=== PATIENT | male | born 1945 | race Caucasian/White ===

== ENCOUNTER 2017-09-20 15:15 | Inpatient (IN) | payer MEDICARE ==
[2017-09-20] MEDS ORDERED: Ondansetron INJ* 2 MG/ML VIAL IV ONE (17:26)
[2017-09-20 17:48] LABS: ABS Basophils 0 10^3/ul (0-0.2); ABS Eosinophils 0.1 10^3/ul (0-0.6); ABS Lymphocytes 0.7 10^3/ul (1.0-4.8); ABS Monocytes 1.3 10^3/ul (0-0.8); ABS Neutrophils 10.7 10^3/ul (1.5-7.7); ABS Nucleated RBC 0 10^3/ul; Eosinophil % 0.4 % (0-6); Hematocrit 31 % (42-52); Hemoglobin 10.4 g/dl (14.0-18.0); Lymphocyte % 5.5 % (25-47); Mean Corpuscular HGB Conc 34 g/dl (31-36); Mean Corpuscular Hemoglobin 32 pg (27-31); Mean Corpuscular Volume 94 fL (80-94); Nucleated Red Blood Cells % 0; Platelet Count 187 10^3/ul (150-450); Red Blood Count 3.32 10^6/ul (4.0-5.4); Red Cell Distribution Width 13 % (10.5-15); White Blood Count 12.7 10^3/ul (3.5-10.8)
[2017-09-20 18:02] LABS: Urine Appearance Clear; Urine Blood 1+ (Negative); Urine Color Yellow; Urine Ketones Negative (Negative); Urine Protein Negative (Negative); Urine Specific Gravity 1.008 (1.010-1.030); Urine Urobilinogen Negative (Negative)
[2017-09-20 18:05] LABS: EGFR Non-African American 6.8 (>60)
[2017-09-20] MEDS ORDERED: NS 0.9% 1000 ML* 1,000 ML IV ONE (18:11)
[2017-09-20] MEDS ORDERED: Sodium Bicarbonate (ANTACID)* 650 MG TAB PO ONE (18:18)
[2017-09-20] MEDS ORDERED: Sodium Polystyrene ORAL.SOL* 15 GM/60 ML BTL PO ONE (18:18)
[2017-09-20] MEDS ORDERED: Enoxaparin(*) 40 MG/0.4 ML SYR SUBCUT SCH (19:00)
[2017-09-20] MEDS ORDERED: Al Hydrox/Mg Hydrox/Simet LIQ* 30 ML UDC PO PRN (19:00)
[2017-09-20] MEDS ORDERED: Acetaminophen TAB* 325 MG PO PRN (19:00)
[2017-09-20] MEDS ORDERED: Calcium Gluconate INJ* 1 GM in NS 0.9% 50 ML* 50 ML IVPB ONE (19:41)
[2017-09-20] MEDS ORDERED: Zosyn per Pharmacy* NOTE FOLLOW UP PRN (19:52)
[2017-09-20] MEDS ORDERED: Piperacillin/Tazobac ADVAN(*) 3.375 GM in NS 0.9% 50 ML* 50 ML IVPB ONE (20:00)
[2017-09-20] MEDS ORDERED: Piperacillin/Tazobac ADVAN(*) 3.375 GM in NS 0.9% 100 ML* 100 ML IVPB ONE (20:00)
[2017-09-20] MEDS ORDERED: Metoprolol Tartrate IV* 1 MG/ML 5 ML VIAL IV PRN ×2 (20:34→22:52)
[2017-09-20] MEDS ORDERED: Metoprolol Tartrate IV* 1 MG/ML 5 ML VIAL IV ONE (20:35)
[2017-09-20] MEDS ORDERED: Apixaban* 5 MG TAB PO SCH (21:00)
[2017-09-20] MEDS ORDERED: Diltiazem IV* 5 MG/ML 5 ML VIAL (for loading dose/IV Push) (25 MG) IV SLOW PU ONE (21:07)
[2017-09-20] MEDS ORDERED: Heparin DRIP 25,000 UNITS(*) 25,000 UNITS/500 ML BAG IV SCH (21:15)
--- NOTE | 2017-09-20 21:15 | PN ---
Progress Note - Progress Note Date of Service: 09/20/17 Note: Prior to arrival to ICU patient went into Afib with RVR, given Lopressor 5 mg IV with minimal effect. Patient states he goes in and out of Afib when he overexerts himself. He sees Dr. Brown. Denies CP or SOB. Dr. Brown infantry operations specialist - recommended amiodarone to attempt chemical conversion. Will hold Eliquis in setting of renal failure. If he remains in afib in the AM will start heparin drip. May be a candidate for cardioversion in AM. Will repeat labs now and check mag and trop
[2017-09-20] MEDS ORDERED: Amiodarone 150 MG IVPREMIX* 150 MG/100 ML BAG IV ONE (21:20)
[2017-09-20] MEDS ORDERED: Amiodarone 360 MG IVPREMIX* 360 MG/200 ML BAG IV ONE (21:30)
[2017-09-20 21:44] LABS: ABS Basophils 0 10^3/ul (0-0.2); ABS Eosinophils 0.1 10^3/ul (0-0.6); ABS Lymphocytes 0.7 10^3/ul (1.0-4.8); ABS Monocytes 1.4 10^3/ul (0-0.8); ABS Neutrophils 10.2 10^3/ul (1.5-7.7); ABS Nucleated RBC 0 10^3/ul; Eosinophil % 0.6 % (0-6); Hematocrit 34 % (42-52); Hemoglobin 11.3 g/dl (14.0-18.0); Lymphocyte % 5.9 % (25-47); Mean Corpuscular HGB Conc 34 g/dl (31-36); Mean Corpuscular Hemoglobin 32 pg (27-31); Mean Corpuscular Volume 94 fL (80-94); Mean Platelet Volume 9.3 um3 (7.4-10.4); Nucleated Red Blood Cells % 0; Platelet Count 208 10^3/ul (150-450); Red Blood Count 3.59 10^6/ul (4.0-5.4); Red Cell Distribution Width 13 % (10.5-15); White Blood Count 12.4 10^3/ul (3.5-10.8)
[2017-09-20] MEDS ORDERED: Diltiazem IV VIAL* 125 MG in NS 0.9% 100 ML* 100 ML IV SCH (22:00)
[2017-09-20] MEDS ORDERED: Heparin VIAL(*) 5000 UNITS/ML VIAL (FIVE THOUSAND) IV SCH (22:00)
[2017-09-20] MEDS ORDERED: Diltiazem DRIP* 100 MG/100 ML ADDV.BAG IVPB SCH (22:00)
[2017-09-20] MEDS: NS 0.9% 1000 ML* 1,000 ML IV SCH (22:08)
[2017-09-20] MEDS: Terazosin CAP* 5 MG PO SCH (22:42)
[2017-09-20] MEDS: Metoprolol Tartrate TAB* 25 MG PO SCH (22:42)
[2017-09-20] MEDS: Atorvastatin* 10 MG TAB PO SCH (22:43)
[2017-09-21] MEDS: ZOSYN 3.375 GM Q12H per EXTENDED INFUSION IVPB SCH ×4 (00:49→12:59)
[2017-09-21] MEDS ORDERED: Amiodarone 360 MG IVPREMIX* 360 MG/200 ML BAG IV SCH (03:30)
[2017-09-21 03:34] LABS: EGFR Non-African American 11.5 (>60)
--- NOTE | 2017-09-21 04:10 | HP ---
HISTORY AND PHYSICAL: DATE OF ADMISSION: 09/20/17 TIME OF ADMISSION: 7 p.m. CHIEF COMPLAINT: Urinary frequency and generalized malaise. HISTORY OF PRESENT ILLNESS: This is a 71-year-old man with history of BPH, who presents with 1 week of urinary frequency and pelvic pain. He has a long history of BPH and follows with the primary care physician at the [facility], but does not have a urologist. He reports first having symptoms of feeling ill 2 weeks ago when he thought he ate some bad food and had several days of watery diarrhea that had no blood and then 1 week ago, he developed urinary frequency and suprapubic discomfort. Six days ago, he called his primary care physician at the [facility], who prescribed Bactrim, but over the past 6 days, he has been taking the Bactrim without any relief and today, he continued to feel worse, so he came to the emergency department. His is here with him and reports loose stools as well associated with his urinary frequency and pelvic pain. He has also been very sleepy because he has been waking up to urinate every 30 minutes throughout the night and also complains of decreased appetite and nausea. PAST MEDICAL HISTORY: 1. Atrial fibrillation, on anticoagulation. 2. Coronary artery disease. 3. BPH. PCP: [facility] HOME MEDICATIONS: 1. Eliquis 5 mg b.i.d. 2. Metoprolol tartrate 25 mg b.i.d. 3. Aspirin 81 mg daily. 4. Atorvastatin 10 mg q.h.s. 5. CoQ10 30 mg q.h.s. 6. Levothyroxine 0.1 mg q.h.s. SOCIAL HISTORY: He is a former smoker and quit in 2000. 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 He lives at home with his , Shelli. Shelli's phone number is [phone]. REVIEW OF SYSTEMS: As per HPI. The remainder of 14-point review of systems is negative. PHYSICAL EXAMINATION GENERAL: Alert, well-appearing male, in no acute distress, though he does appear mildly uncomfortable. VITAL SIGNS: Temperature 97.7, heart rate 87, respiratory rate 17, pulse ox 97 % on room air, blood pressure 151/79. HEENT: Pupils 3 mm bilaterally and reactive to light. No nystagmus. Mucosa is moist. No pharyngeal exudates or erythema. NECK: No cervical lymphadenopathy. No cervical lymphadenopathy. LUNGS: Clear bilaterally. CHEST: Regular rate and rhythm. No murmurs. PMI is nondisplaced. ABDOMEN: Soft, nontender, nondistended. He has very mild tenderness to deep palpation in suprapubic area. A Suresh catheter is in place and draining light yellow urine. He has no CVA tenderness. EXTREMITIES: 2+ pitting lower extremity edema. No rashes or ulcers. LABORATORY DATA: Sodium 133, potassium 6.3, chloride 103, bicarb 18, BUN 85, creatinine 7.81. Urinalysis: 1+ blood, trace leuk esterase. ASSESSMENT AND PLAN: This is a 71-year-old man with history of benign prostatic hyperplasia, who presents with urinary frequency and suprapubic pain and is found to be in acute urinary retention with acute renal failure. 1. Acute renal failure. Based on his history, I suspect this is most likely a post-renal failure. I will check a renal ultrasound tomorrow morning if his renal function is not improving; however, I suspect it will continue to improve with the relief of the obstruction. He needs an EKG stat, this has not yet been done. He needs telemetry and an ICU admission for his hyperkalemia. 2. Hyperkalemia. Again, an EKG is pending. Kayexalate has been ordered in the ED; however, further management will depend on the findings of his EKG at this time. 3. Acute urinary retention, likely secondary to benign prostatic hyperplasia and possibly prostatitis. He does not appear to be on any benign prostatic hyperplasia medications, so I will start Flomax and finasteride and I will broaden his antibiotic to pip-tazo (completed 6 days of tmp/smx at home) and follow up urine cultures, though they may be negative in the setting of prostatitis. Will check frequent BMPs to monitor electrolytes in the setting of post-obstructive diuresis. 4. Anion gap metabolic acidosis. I suspect this is most likely secondary to uremia and should improve as his renal failure improves. 5. Atrial fibrillation. He is currently in normal sinus rhythm. Hold eliquis , continue metoprolol, and aspirin. 6. Coronary artery disease. Continue his home regimen of metoprolol, aspirin, and atorvastatin. 7. Hypothyroidism. Continue levothyroxine. 8. DVT prophylaxis contraindicated in the setting of therapeutic anticoagulation. [id number]/[facility] #: [id number] LISA
[2017-09-21 05:39] LABS: Hematocrit 32 % (42-52); Mean Corpuscular HGB Conc 35 g/dl (31-36); Mean Corpuscular Hemoglobin 32 pg (27-31); Mean Corpuscular Volume 93 fL (80-94); Mean Platelet Volume 9.3 um3 (7.4-10.4); Platelet Count 209 10^3/ul (150-450); Red Blood Count 3.42 10^6/ul (4.0-5.4); Red Cell Distribution Width 13 % (10.5-15)
[2017-09-21 05:41] LABS: ABS Basophils 0 10^3/ul (0-0.2); ABS Eosinophils 0.2 10^3/ul (0-0.6); ABS Monocytes 1.6 10^3/ul (0-0.8); ABS Neutrophils 7.2 10^3/ul (1.5-7.7); ABS Nucleated RBC 0 10^3/ul; Nucleated Red Blood Cells % 0
[2017-09-21 05:51] LABS: EGFR Non-African American 12.7 (>60)
[2017-09-21] MEDS: Levothyroxine TAB* 100 MCG TAB PO SCH (06:28)
--- NOTE | 2017-09-21 09:17 | RAD ---
Indication: Post obstructive renal failure. Real-time sonography of the kidneys was performed. The right kidney measures 12.0 x 5.9 x 6.0 cm. The left kidney measures 12.2 x 6.2 x 5.4 cm. Mild hydronephrosis is noted in both kidneys. Bilateral hydroureter is noted. IMPRESSION: Mild bilateral hydronephrosis and hydroureter.
[2017-09-21] MEDS: Multivitamins/Minerals TAB PO SCH (09:42)
[2017-09-21] MEDS: Aspirin EC Low Dose* 81 MG TAB.EC PO SCH (09:42)
[2017-09-21] MEDS: Metoprolol Tartrate TAB* 25 MG PO SCH ×2 (09:42→20:36)
[2017-09-21] MEDS: NS 0.9% 1000 ML* 1,000 ML IV SCH (10:02)
--- NOTE | 2017-09-21 11:00 | PN ---
Subjective Date of Service: 09/21/17 Interval History: went in to afib with rvr overnight, converted to NSR this morning around 7am and remains in normal sinus. he feels good this morning, appetite is improved, he has been afebrile, his only complaint is right testicular tenderness. Objective Active Medications: Acetaminophen (Tylenol Tab*) 650 mg PO Q4H PRN PRN Reason: FEVER/PAIN Last Admin: 09/21/17 00:21 Dose: 650 mg Al Hydrox/Mg Hydrox/Simethicone (Maalox Plus*) 30 ml PO Q6H PRN PRN Reason: INDIGESTION Aspirin (Aspirin Ec Low Dose*) 81 mg PO DAILY@0900 [facility] Last Admin: 09/21/17 09:42 Dose: 81 mg Atorvastatin Calcium (Lipitor*) 10 mg PO DAILY@2100 [facility] Last Admin: 09/20/17 22:43 Dose: 10 mg Sodium Chloride (Ns 0.9% 1000 Ml*) 1,000 mls @ 125 mls/hr IV PER RATE [facility] Last Admin: 09/21/17 10:02 Dose: 125 mls/hr Piperacillin Sod/Tazobactam (Sod 3.375 gm/ Sodium Chloride) 100 mls @ 25 mls/ hr IVPB Q12H [facility] Last Admin: 09/21/17 00:49 Dose: 25 mls/hr Levothyroxine Sodium (Synthroid Tab*) 100 mcg PO 0600 [facility] Last Admin: 09/21/17 06:28 Dose: 100 mcg Metoprolol Tartrate (Lopressor Tab*) 25 mg PO BID [facility] Last Admin: 09/21/17 09:42 Dose: 25 mg Metoprolol Tartrate (Lopressor Iv*) 5 mg IV Q4HR PRN PRN Reason: HEART RATE/PULSE Last Admin: 09/20/17 23:18 Dose: 5 mg Multivitamins/Minerals (Theragran/Minerals Tab*) 1 tab PO DAILY [facility] Last Admin: 09/21/17 09:42 Dose: 1 tab Pharmacy Consult (Zosyn Per Pharmacy*) 1 note FOLLOW UP . PRN PRN Reason: PER PROTOCOL Terazosin HCl (Hytrin Cap*) 10 mg PO DAILY@2100 [facility] Last Admin: 09/20/17 22:42 Dose: 10 mg Vital Signs - 8 hr 09/21/17 09/21/17 09/21/17 03:00 03:35 04:00 Temperature 98.6 F Pulse Rate 119 118 Respiratory 23 21 19 Rate Blood Pressure 89/63 90/66 (mmHg) O2 Sat by Pulse 93 92 Oximetry 09/21/17 09/21/17 09/21/17 04:59 05:00 06:00 Temperature Pulse Rate 124 124 Respiratory 20 17 20 Rate Blood Pressure 96/65 99/74 (mmHg) O2 Sat by Pulse 95 94 Oximetry 09/21/17 08:00 Temperature 98.7 F Pulse Rate Respiratory Rate Blood Pressure (mmHg) O2 Sat by Pulse Oximetry Oxygen Devices in Use Now: Nasal Cannula Appearance: alert, well appearing Eyes: No Scleral Icterus Ears/Nose/Mouth/Throat: NL Teeth, Lips, Gums Neck: NL Appearance and Movements; NL JVP, Trachea Midline Respiratory: Symmetrical Chest Expansion and Respiratory Effort, Clear to Auscultation Cardiovascular: NL Sounds; No Murmurs; No JVD, RRR, No Edema Abdominal: NL Sounds; No Tenderness; No Distention, No Hepatosplenomegaly, - - no testicular swelling, no fluctuance, +exquisite tenderness on the right testicle Lymphatic: No Cervical Adenopathy, No Axillary Adenopathy Extremities: No Edema, No Clubbing, Cyanosis Skin: No Rash or Ulcers Neurological: Alert and Oriented x 3, NL Sensation Result Diagrams: 09/21/17 04:53 09/21/17 04:53 Microbiology and Other Data: Microbiology 09/20/17 23:00 Nasal Screen MRSA (PCR)(MARKELL) - Final Nasal Mrsa Not Detected Assess/Plan/Problems-Billing Assessment: 71 yo man with history of bph, paroxysmal afib, and cad admitted with acute urinary retention and renal failure - Patient Problems (1) Acute urinary retention Current Visit: Yes Status: Acute Code(s): R33.8 - OTHER RETENTION OF URINE SNOMED Code(s): 526342374 Comment: resolved with lopez catheter long history of bph; takes terazosin at home, I added finasteride yesterday discussed with urology; Dr. Oseguera will see him outpatient one week from discharge for voiding trial need to monitor now for postobstructive diuresis (2) Acute renal failure Current Visit: Yes Status: Acute Comment: post-renal, improving mild hydronephrosis and hydroureter is expected (3) Testicular pain, right Current Visit: Yes Status: Acute Code(s): N50.811 - RIGHT TESTICULAR PAIN SNOMED Code(s): 04810718 Comment: check testicular ultrasound to evaluate for epididymitis continue pip/tazo for prostatitis empirically (4) Atrial fibrillation with RVR Current Visit: No Status: Acute Code(s): I48.91 - UNSPECIFIED ATRIAL FIBRILLATION SNOMED Code(s): 562661812821650 Comment: required amiodarone drip overnight; converted to NSR amio drip DC'ed this morning, resume home metoprolol eliquis on hold for renal failure, will continue heparin drip in case he returns to RVR and requires cardioversion (5) CAD (coronary artery disease) Current Visit: No Status: Acute Code(s): I25.10 - ATHSCL HEART DISEASE OF [place] CORONARY ARTERY W/O ANG PCTRS SNOMED Code(s): 34634238 Comment: continue asa, bb, statin
--- NOTE | 2017-09-21 14:30 | RAD ---
Indication: RIGHT testicular pain following urinary catheterization yesterday. Comparison: No relevant prior exams available on the [facility] PACS for comparison. Technique: Scrotal ultrasound. Report: 4.2 x 2.7 x 3.2 cm RIGHT testicle. 4.6 x 2.0 x 3.0 cm LEFT testicle. Normal symmetric testicular vascularity and echotexture. Normal mediastinum testis/ rete testis noted. No suspicious focal testicular lesions evident. 0.6 x 1.3 cm RIGHT epididymis head and 1.0 x 1.5 cm LEFT epididymis head demonstrate normal range vascularity and absence of focal lesions. Physiologic small volume of scrotal fluid bilaterally without significant hydroceles. Negative for varicoceles. IMPRESSION: 1. No evidence for testicular torsion or epididymoorchitis. 2. Physiologic small volume of scrotal fluid bilaterally.
[2017-09-21] MEDS: Atorvastatin* 10 MG TAB PO SCH (20:36)
[2017-09-21] MEDS: Terazosin CAP* 5 MG PO SCH (21:35)
[2017-09-22] MEDS: ZOSYN 3.375 GM Q12H per EXTENDED INFUSION IVPB SCH ×2 (01:10)
[2017-09-22] MEDS: NS 0.9% 1000 ML* 1,000 ML IV SCH (01:12)
[2017-09-22] MEDS: Levothyroxine TAB* 100 MCG TAB PO SCH (04:51)
[2017-09-22 06:02] LABS: EGFR Non-African American 30.8 (>60)
[2017-09-22] MEDS: Metoprolol Tartrate TAB* 25 MG PO SCH (08:41)
[2017-09-22] MEDS: Multivitamins/Minerals TAB PO SCH (08:41)
[2017-09-22] MEDS: Aspirin EC Low Dose* 81 MG TAB.EC PO SCH (08:41)
[2017-09-22 11:40] VITALS: BP 117/64
[2017-09-22] MEDS ORDERED: DOXYcycline CAP(*) 100 MG PO SCH (21:00)
--- NOTE | 2017-09-22 22:23 | DS ---
CC: Dr. Oseguera * DISCHARGE SUMMARY: DATE OF ADMISSION: 09/20/17 DATE OF DISCHARGE: 09/22/17 PRIMARY DISCHARGE DIAGNOSES: 1. Acute urinary retention. 2. Acute kidney failure. 3. Acute prostatitis. 4. Atrial fibrillation with rapid ventricular response. SECONDARY DISCHARGE DIAGNOSES: 1. Benign prostatic hyperplasia. 2. Coronary artery disease. 3. Atrial fibrillation. PHYSICAL EXAMINATION AT DISCHARGE: Temperature 99.2, heart rate 68, blood pressure 131/72, pulse ox 97% on room air, respiratory rate 20. General: Alert , well appearing man, in no distress. HEENT: Pupils 3 mm bilaterally and reactive to light. No nystagmus. Moist mucosa. No pharyngeal exudates or erythema. Neck: No JVP. No cervical lymphadenopathy. Chest: Regular rate and rhythm. No murmurs. PMI is nondisplaced. Lungs: Clear bilaterally. No wheezes or rhonchi. Abdomen: Soft, nontender, nondistended. No CVA tenderness. No suprapubic tenderness. Liver is nonpalpable. No guarding or rebound. Extremities: No edema. No rashes. No ulcers. A Suresh catheter is in place and draining yellow urine. Neurologic: Strength is 5+ throughout. HOSPITAL COURSE: 1. Acute urinary retention: Mr. Jones was admitted to the hospital after 1 week of urinary frequency and suprapubic fullness. In the emergency department , he was found to have 1600 cc of urine in his bladder that drained immediately upon placement of a Suresh catheter. He has a long history of BPH. This is likely the etiology of his acute urinary retention. He did experience postobstructive diuresis; however, he tolerated the Suresh catheter well. I am treating him empirically for acute prostatitis despite having a negative urinalysis. He received Zosyn for 3 days while admitted to the hospital. I am discharging him on doxycycline for 14 days; however, he was instructed to follow up with Dr. Oseguera prior to that who may elect to extend his treatment for prostatitis to a longer course, like 4 weeks, versus ending it since it is empiric therapy and we have no microbiology data prior to starting course. He did have leukocytosis upon arrival to the emergency department; however, he has been afebrile during his hospitalization. He is being discharged with a Suresh catheter and a leg bag and I have discussed the case with Urology, who will review his information and call him with a followup appointment within 1 week for a voiding trial. 2. Acute renal failure: Likely postrenal in nature due to acute urinary retention. After the Suresh catheter was placed, his renal function improved dramatically over the next several days. His creatinine at the time of discharge is 2.13 from a baseline of 0.8. His admission creatinine was 7.91. He is euvolemic at the time of discharge. 3. Hyperkalemia: On admission, his potassium was 6.3. I suspect this was due to acute renal failure. He received Kayexalate in the emergency department and had subsequent loose stools. He had no EKG changes. His discharge potassium is 4.7. He was initially admitted to the ICU for close monitoring due to the hyperkalemia and was transferred to the floor the next morning when the hyperkalemia resolved. 4. BPH: He had been taking terazosin at home. I am adding finasteride at discharge and I have sent this to his pharmacy. 5. AFib with RVR: The first night of his admission, he converted from normal sinus rhythm into AFib and was found to have RVR in the ICU. The case was discussed with Cardiology, who recommended an amiodarone drip at night. He was on the amiodarone drip and chemically converted to normal sinus rhythm the following morning. He remained in normal sinus rhythm throughout the remainder of his hospitalization and he was continued on his home dose of metoprolol. His Eliquis was held at admission due to his acute renal failure and he was started on heparin drip when he went into AFib with RVR given the concern that he may need to be cardioverted. He is instructed to hold his Eliquis for 3 more days while his renal failure resolved and to resume it on 09/25/17. 6. Coronary artery disease: Continue aspirin, statin and beta-ginette. 7. Disposition: Mr. Jones is discharged to home on 09/22/17 with a Suresh catheter and a leg bag and medication sent to his pharmacy in [place]. He is instructed to return to the emergency department with fevers, chills, or any other abnormal symptoms. [id number]/[facility] #: [id number] [facility]
--- NOTE | 2017-09-23 13:21 | ED ---
rOi Wolfe Nilda, scribed for Pablo Goncalves MD on 09/20/17 at 1733 . GI/ HPI - HPI Summary HPI Summary: This patient is a 71 year old M presenting to [facility] accompanied by with a chief complaint of constant abnormal urinary symptoms for the past 10 days. The patient rates the pain 0/10 in severity. Symptoms aggravated by urination, and alleviated by nothing. Patient reports nausea, penile discharge, dysuria, urinary frequency (once per hour), urinary retention, and loss of appetite. states patient has insomnia secondary to symptoms. Patient states he is on 5th day of Bactrim for UTI. Medications also include Eloquis. PMHx includes enlarged prostate with occasional infection (since 30s) and A-fib (resolves quickly). - History of Current Complaint Chief Complaint: EDGeneral Stated Complaint: ENLARGED PROSTATE COMPLICATIONS Hx Obtained From: Patient, Family/Staff Genetic Counselor - Onset/Duration: Started Weeks Ago, Still Present Timing: Constant Pain Intensity: 0 Associated Signs and Symptoms: Positive: Other: - insomnia, nausea, penile discharge, dysuria, urinary frequency (once per hour), urinary retention, and loss of appetite. Additional Signs & Symptoms: Positive: Penile Discharge Aggravating Factor(s): Urination Alleviating Factor(s): Nothing - Additional Pertinent History Primary Care Physician: [facility] - Allergy/Home Medications Allergies/Adverse Reactions: Allergies Allergy/AdvReac Type Severity Reaction Status Date / Time amoxicillin [From Augmentin] Allergy Itching Verified 09/20/17 20:39 clavulanic acid Allergy Itching Verified 09/20/17 20:39 [From Augmentin] pravastatin Allergy Altered Verified 09/20/17 20:39 Mental Status rosuvastatin [From Crestor] Allergy Altered Verified 09/20/17 20:39 Mental Status sertraline Allergy Altered Verified 09/20/17 20:39 Mental Status simvastatin Allergy Altered Verified 09/20/17 20:39 Mental Status Home Medications: Home Medications Apixaban* [Eliquis*] 5 mg PO BID 09/20/17 [History Confirmed 09/20/17] Aspirin EC Low Dose* [Ecotrin EC Low Dose 81 MG*] 81 mg PO DAILY@0900 09/20/17 [ History Confirmed 09/20/17] Metoprolol Tartrate TAB* [Lopressor TAB*] 25 mg PO BID 09/20/17 [History Confirmed 09/20/17] Multivitamins/Minerals TAB* [Theragran/minerals TAB*] 1 tab PO DAILY 09/20/17 [ History Confirmed 09/20/17] Sulfamethox/Trimethoprim DS* [Bactrim DS 800/160 TAB*] 1 tab PO BID 09/20/17 [ History Confirmed 09/20/17] Terazosin CAP* [Hytrin CAP*] 10 mg PO DAILY@209909/20/17 [History Confirmed ] Ubidecarenone [Co Q-10] 30 mg PO DAILY@209909/20/17 [History Confirmed 09/20/17 ] PMH/Surg Hx/FS Hx/Imm Hx Endocrine/Hematology History: Reports: Hx Thyroid Disease - HYPO Cardiovascular History: Reports: Hx Coronary Artery Disease, Hx Myocardial Infarction - 2000, CARDIAC STENT History: Reports: Hx Benign Prostatic Hyperplasia, Other Problems/ Disorders - BPH Musculoskeletal History: Reports: Hx Arthritis - RIGHT HAND Sensory History: Reports: Hx Cataracts, Hx Contacts or Glasses, Hx Hearing Aid - RARELY WEARS Opthamlomology History: Reports: Hx Cataracts, Hx Contacts or Glasses Neurological History: Reports: Hx Seizures - X2 A CHILD - Surgical History Surgery Procedure, Year, and Place: CARDIAC STENT INSERTION 2000. LEFT ARM A CHILD Hx Anesthesia Reactions: No Infectious Disease History: No Infectious Disease History: Denies: Traveled Outside the [place] in Last 30 Days - Social History Lives: With Family Alcohol Use: Rare Substance Use Type: Reports: None Smoking Status (MU): Former Smoker Review of Systems Negative: Fever, Chills Negative: Erythema Negative: Sore Throat Negative: Chest Pain Negative: Shortness Of Breath, Cough Positive: Nausea, Other - loss of appetite. Negative: Abdominal Pain, Vomiting Positive: dysuria, discharge, frequency, other - urinary retention. Negative: hematuria Negative: Myalgia, Edema Negative: Rash Neurological: Other - insomnia; negative dizziness All Other Systems Reviewed And Are Negative: Yes Physical Exam - Summary Physical Exam Summary: Constitutional: Well-developed, Well-nourished, Alert. (-) Distressed Skin: Warm, Dry HENT: Normocephalic; Atraumatic Eyes: Conjunctiva normal Neck: Musculoskeletal ROM normal neck. (-) JVD, (-) Stridor, (-) Tracheal deviation Cardio: Rhythm regular, rate normal, Heart sounds normal; Intact distal pulses; The pedal pulses are 2+ and symmetric. Radial pulses are 2+ and symmetric. (-) Murmur Pulmonary/Chest wall: Effort normal. (-) Respiratory distress, (-) Wheezes, (-) Rales Abd: Soft, Suprapubic Tenderness, possible bladder Distension, (-) Guarding, (- ) Rebound Musculoskeletal: 1+ Edema bilat LE Lymph: (-) Cervical adenopathy Neuro: Alert, Oriented x3 Psych: Mood and affect Normal Triage Information Reviewed: Yes Vital Signs On Initial Exam: Initial Vitals Temp Pulse Resp BP Pulse Ox 97.7 F 87 17 151/79 97 09/20/17 15:28 09/20/17 15:28 09/20/17 15:28 09/20/17 15:28 09/20/17 15:28 Vital Signs Reviewed: Yes Diagnostics - Vital Signs Vital Signs Temp Pulse Resp BP Pulse Ox 09/20/17 15:28 97.7 F 87 17 151/79 97 - Laboratory Result Diagrams: 09/20/17 21:30 09/20/17 21:30 Lab Statement: Any lab studies that have been ordered have been reviewed, and results considered in the medical decision making process. - EKG 1921 Cardiac Rate: NL EKG Rhythm: Sinus Rhythm - 76 bpm EKG Interpretation: T-wave inversion V1-V3, no STEMI GIGU Course/Dx - Course Assessment/Plan: This patient is a 71 year old M presenting to [facility] accompanied by with a chief complaint of constant abnormal urinary symptoms for the past 10 days. The patient rates the pain 0/10 in severity. Symptoms aggravated by urination, and alleviated by nothing. Patient reports nausea, penile discharge, dysuria, urinary frequency (once per hour), urinary retention, and loss of appetite. states patient has insomnia secondary to symptoms. Patient states he is on 5th day of Bactrim for UTI. Medications also include Eloquis. PMHx includes enlarged prostate with occasional infection ( since 30s) and A-fib (resolves quickly). An EKG reveals NSR, 76 bpm, T-wave inversion V1-V3, no STEMI. [1819] Dr. Reinoso (print manager) recommends we administer sodium bicarb and sodium polystyrene, as well as admission. [1830] Dr. Henriquez (hospitalist) agrees to admit pt. [2047] Dr. Yoon (hospitalist) now understand pt is in Afib with RVR. She recommends 5mg of IV Lopressor and that he be sent to ICU. Pt is stable and will be admitted. Pt understands and is agreeable with this plan. Dx. Acute urinary retention, obstructive renal failure, hyperkalemia, and AFib with RVR. CCT 60 mins. - Diagnoses Provider Diagnoses: Acute urinary retention, obstructive renal failure, Hyperkalemia, Atrial fibrillation with RVR - Physician Notifications Discussed Care Of Patient With: Ajit Reinoso - Telephone Advice Nurse Time Discussed With Above Provider: 18:19 Instructed by Provider To: Other - recommends we administer sodium bicarb and sodium polystyrene, as well as admission. - Critical Care Time Critical Care Time: 30-74 min - 60 mins Discharge - Sign-Out/Discharge Documenting (check all that apply): Discharge - Discharge Plan Condition: Stable Disposition: ADMITTED TO [facility] The documentation as recorded by the Ori hitchcock Nilda accurately reflects the service I personally performed and the decisions made by me, Pablo Goncalves MD.
== END 2017-09-22 15:00 | disposition home or self-care (01) | DRG 726 ==
LOC: ED 15:15 → ICU 19:00 → MEDTELE 09-21 14:07
PROVIDERS: ADMIT Internal Medicine; ATTEND Internal Medicine
PROC: 0T9B70Z Drainage of Bladder with Drainage Device, Via Natural or Artificial Opening (ICD-10-PCS; principal; 2017-09-20)
DX: N40.1 Benign prostatic hyperplasia with lower urinary tract symptoms (principal); N39.0 Urinary tract infection, site not specified; E87.2 Acidosis; N17.9 Acute kidney failure, unspecified; N13.30 Unspecified hydronephrosis; I25.10 Atherosclerotic heart disease of native coronary artery without angina pectoris; R33.8 Other retention of urine; M19.041 Primary osteoarthritis, right hand; H26.9 Unspecified cataract; G47.00 Insomnia, unspecified; I48.0 Paroxysmal atrial fibrillation; E87.5 Hyperkalemia; N41.0 Acute prostatitis; E03.9 Hypothyroidism, unspecified; N50.811 Right testicular pain; Z88.1 Allergy status to other antibiotic agents; Z79.82 Long term (current) use of aspirin; I25.2 Old myocardial infarction; Z88.8 Allergy status to other drugs, medicaments and biological substances; Z95.5 Presence of coronary angioplasty implant and graft; Z87.891 Personal history of nicotine dependence
CPT/HCPCS: 36415; 76775; 76870; 80048; 80053; 81003; 81015; 83605; 83690; 83735; 83880; 84484; 85025; 85730; 86140; 87040; 87086; 87641; 93005; 99285; A9270-GY; J0282; J0610; J2405; J2543; J3490

== ENCOUNTER 2017-10-09 20:55 | Emergency (ER) | payer MEDICARE ==
[2017-10-09 21:04] VITALS: BP 133/86
[2017-10-09] MEDS ORDERED: Lidocaine 2% JELLY* 6 ML JELLY TOPICAL ONE ×2 (21:42→21:49)
--- NOTE | 2017-10-09 21:45 | ED ---
GI/ HPI - HPI Summary HPI Summary: Pt here w/ urinary retention greater than 6 hours today. He had a Suresh catheter and earlier today which was removed by urology and he has not been able to urinate since. Ab discomfort, pressure. He has a history of enlarged prostate which is most likely the cause of his urinary retention. Dr. Owen called prior to patient's arrival requesting Suresh catheter placement and urinalysis with culture collection. Patient denies fevers, chills, flank pain, nausea, vomiting, diarrhea. He is scheduled to take his nighttime meds at 9 PM - will be DC'd home in time for him to take meds. - History of Current Complaint Chief Complaint: EDUrogenitalProblems Time Seen by Provider: 10/09/17 21:12 Stated Complaint: UNABLE TO URINATE Hx Obtained From: Patient Pain Intensity: 0 - Additional Pertinent History Primary Care Physician: [facility]MI - Allergy/Home Medications Allergies/Adverse Reactions: Allergies Allergy/AdvReac Type Severity Reaction Status Date / Time amoxicillin [From Augmentin] Allergy Itching Verified 10/09/17 21:05 clavulanic acid Allergy Itching Verified 10/09/17 21:05 [From Augmentin] pravastatin Allergy Altered Verified 10/09/17 21:05 Mental Status rosuvastatin [From Crestor] Allergy Altered Verified 10/09/17 21:05 Mental Status sertraline Allergy Altered Verified 10/09/17 21:05 Mental Status simvastatin Allergy Altered Verified 10/09/17 21:05 Mental Status PMH/Surg Hx/FS Hx/Imm Hx Previously Healthy: Yes Endocrine/Hematology History: Reports: Hx Anticoagulant Therapy - Eliquis, Hx Thyroid Disease - HYPO - takes levothyroxine Cardiovascular History: Reports: Hx Atrial Fibrillation, Hx Coronary Artery Disease, Hx Myocardial Infarction - 2000, CARDIAC STENT History: Reports: Hx Benign Prostatic Hyperplasia - recently causing issues with urinary retention; follows with urology Musculoskeletal History: Reports: Hx Arthritis - RIGHT HAND Sensory History: Reports: Hx Cataracts, Hx Contacts or Glasses, Hx Hearing Aid - RARELY WEARS Opthamlomology History: Reports: Hx Cataracts, Hx Contacts or Glasses Neurological History: Reports: Hx Seizures - X2 A CHILD - Surgical History Surgery Procedure, Year, and Place: CARDIAC STENT INSERTION 2000. LEFT ARM A CHILD Hx Anesthesia Reactions: No Infectious Disease History: No Infectious Disease History: Denies: Traveled Outside the [place] in Last 30 Days - Social History Occupation: Retired Lives: With Family Alcohol Use: Rare Hx Substance Use: No Substance Use Type: Reports: None Hx Tobacco Use: Yes Smoking Status (MU): Former Smoker Review of Systems Constitutional: Negative Negative: Fever, Chills, Fatigue Negative: Chest Pain Negative: Shortness Of Breath Gastrointestinal: Negative Positive: see HPI Neurological: Negative Negative: Headache Psychological: Normal All Other Systems Reviewed And Are Negative: Yes Physical Exam Triage Information Reviewed: Yes Vital Signs On Initial Exam: Initial Vitals Temp Pulse Resp BP Pulse Ox 97.9 F 81 15 133/86 98 10/09/17 21:02 10/09/17 21:02 10/09/17 21:02 10/09/17 21:02 10/09/17 21:02 Vital Signs Reviewed: Yes Appearance: Positive: Well-Appearing, No Pain Distress, Well-Nourished Skin: Positive: Warm, Skin Color Reflects Adequate Perfusion, Dry Head/Face: Positive: Normal Head/Face Inspection Eyes: Positive: Normal, EOMI, Conjunctiva Clear - Anicteric sclera ENT: Positive: Normal ENT inspection, Hearing grossly normal, Pharynx normal - Mucosa moist Respiratory/Lung Sounds: Positive: Breath Sounds Present Cardiovascular: Positive: IRR Abdomen Description: Positive: Soft Bowel Sounds: Positive: Present Musculoskeletal: Positive: Normal, Strength/ROM Intact Neurological: Positive: Normal, Sensory/Motor Intact, Alert, Oriented to Person Place, Time, CN Intact II-III Psychiatric: Positive: Normal Procedures - Procedure Summary Procedure Summary: Suresh catheter placed by nursing -successful and patient tolerated well Diagnostics - Vital Signs Vital Signs Temp Pulse Resp BP Pulse Ox 10/09/17 21:02 97.9 F 81 15 133/86 98 - Laboratory Lab Statement: Any lab studies that have been ordered have been reviewed, and results considered in the medical decision making process. Re-Evaluation - Re-Evaluation First Eval Change: Improved - ab pressure relieved GIGU Course/Dx - Course Course Of Treatment: Patient here with acute, recurring urinary retention most likely secondary to BPH. He has a follow-up appointment tomorrow with urology. Catheter placed this evening successfully. Patient will keep follow-up appointment tomorrow and return to ED if danger signs or symptoms present. - Diagnoses Provider Diagnoses: Urinary retention due to benign prostatic hyperplasia Discharge - Sign-Out/Discharge Documenting (check all that apply): Discharge - Discharge Plan Condition: Stable Disposition: HOME Patient Education Materials: Urinary Retention in Men (ED), Suresh Catheter Placement and Care (ED) Referrals: Kavon Oseguera MD [Medical Doctor] - Additional Instructions: Follow-up with urology tomorrow as scheduled *If you develop pain, blockage of urine flow, bloody urine, fever, flank pain, vomiting, return to ED - Billing Disposition and Condition Condition: STABLE Disposition: HOME
== END 2017-10-09 23:11 | disposition home or self-care (01) ==
LOC: ED 20:55
DX: N40.1 Benign prostatic hyperplasia with lower urinary tract symptoms (principal); R33.8 Other retention of urine; E03.9 Hypothyroidism, unspecified; I48.91 Unspecified atrial fibrillation; Z79.01 Long term (current) use of anticoagulants; I25.10 Atherosclerotic heart disease of native coronary artery without angina pectoris; Z95.5 Presence of coronary angioplasty implant and graft; I21.9 Acute myocardial infarction, unspecified; Z88.1 Allergy status to other antibiotic agents; Z88.8 Allergy status to other drugs, medicaments and biological substances; Z87.891 Personal history of nicotine dependence
CPT/HCPCS: 51702; 99281

== ENCOUNTER 2017-11-14 13:57 | Emergency (ER) | payer MEDICARE ==
[2017-11-14 14:23] VITALS: BP 117/64
--- NOTE | 2017-11-14 14:50 | UC ---
Skin Complaint HPI - HPI Summary HPI Summary: 72 yo male with concerns re tick bite bite occurred 11/10 was attached < one hour was removed intact he is asymptomatic - History of Current Complaint Chief Complaint: UCGeneralIllness Time Seen by Provider: 11/14/17 14:34 Stated Complaint: TICK BITE ON RT ARM Hx Obtained From: Patient Onset/Duration: Sudden Onset Timing: Constant Onset Severity: Mild Current Severity: None Pain Intensity: 0 Pain Scale Used: 0-10 Numeric Location: Other - right arm Aggravating Factor(s): Nothing Alleviating Factor(s): Nothing Associated Signs & Symptoms: Positive: Negative - Allergy/Home Medications Allergies/Adverse Reactions: Allergies Allergy/AdvReac Type Severity Reaction Status Date / Time amoxicillin [From Augmentin] Allergy Itching Verified 11/14/17 14:20 clavulanic acid Allergy Itching Verified 11/14/17 14:20 [From Augmentin] pravastatin Allergy Altered Verified 11/14/17 14:20 Mental Status rosuvastatin [From Crestor] Allergy Altered Verified 11/14/17 14:20 Mental Status sertraline Allergy Altered Verified 11/14/17 14:20 Mental Status simvastatin Allergy Altered Verified 11/14/17 14:20 Mental Status Home Medications: Home Medications Apixaban* [Eliquis*] 5 mg PO BID 11/14/17 [History Confirmed 11/14/17] Review of Systems Constitutional: Negative Skin: Negative Eyes: Negative ENT: Negative Respiratory: Negative Cardiovascular: Negative Gastrointestinal: Negative Genitourinary: Negative Motor: Negative Neurovascular: Negative Musculoskeletal: Negative Neurological: Negative Psychological: Negative Is Patient Immunocompromised?: No All Other Systems Reviewed And Are Negative: Yes PMH/Surg Hx/FS Hx/Imm Hx Previously Healthy: Yes Cardiovascular History: Hypertension, Atrial Fibrillation Other History Of: Anticoagulant Therapy - Eliquis - Surgical History Surgical History: Yes Surgery Procedure, Year, and Place: CARDIAC STENT INSERTION 2000. LEFT ARM A CHILD - Family History Known Family History: Positive: Hypertension - Social History Alcohol Use: Rare Substance Use Type: None Smoking Status (MU): Former Smoker When Did the Patient Quit Smoking/Using Tobacco: 2000 - Immunization History Most Recent Influenza Vaccination: This flu season Most Recent Tetanus Shot: Within past 5 years Most Recent Pneumonia Vaccination: Has received in past Physical Exam Triage Information Reviewed: Yes Appearance: Well-Appearing, No Pain Distress, Well-Nourished Vital Signs: Initial Vital Signs Temp 97.8 F 11/14/17 14:13 Pulse 57 11/14/17 14:13 Resp 17 11/14/17 14:13 BP 117/64 11/14/17 14:13 Pulse Ox 99 11/14/17 14:13 Vital Signs Reviewed: Yes Eyes: Positive: Conjunctiva Clear ENT: Positive: Hearing grossly normal. Negative: Nasal congestion, Nasal drainage Neck: Positive: Supple, Nontender Respiratory: Positive: Lungs clear, Normal breath sounds, No respiratory distress, No accessory muscle use Cardiovascular: Negative: RRR Musculoskeletal: Positive: ROM Intact, No Edema Neurological: Positive: Alert Psychological Exam: Normal Skin Exam: Normal Course/Dx - Diagnoses Provider Diagnoses: tick bite right arm Discharge - Sign-Out/Discharge Documenting (check all that apply): Discharge/Admit/Transfer - Discharge Plan Condition: Stable Disposition: HOME Patient Education Materials: Tick Bite (ED) Referrals: Macrina Presley [Primary Care Provider] - Additional Instructions: RECHECK FOR ANY PROBLEMS CALL FOR ANY QUESTIONS - Billing Disposition and Condition Condition: STABLE Disposition: HOME
== END 2017-11-14 14:45 | disposition home or self-care (01) ==
LOC: UCCORT 13:57
DX: S40.861A Insect bite (nonvenomous) of right upper arm, initial encounter (principal); W57.XXXA Bitten or stung by nonvenomous insect and other nonvenomous arthropods, initial encounter; Y93.9 Activity, unspecified; Y92.9 Unspecified place or not applicable; Z88.0 Allergy status to penicillin; Z88.8 Allergy status to other drugs, medicaments and biological substances; I10 Essential (primary) hypertension; I48.91 Unspecified atrial fibrillation; Z79.01 Long term (current) use of anticoagulants; Z87.891 Personal history of nicotine dependence
CPT/HCPCS: 99211; G0463